=== PATIENT | female | born 1945 | race Caucasian/White ===

== ENCOUNTER 2025-01-14 20:04 | Observation (INO) | payer MEDICARE, SELFPAY ==
[2025-01-14] VITALS (58 sets, daily range): BP systolic 93–216; BP diastolic 37–184; BMI 24.9; BMI 23.6
--- NOTE | 2025-01-14 13:26 | ED.MUSCINJ ---
HPI-Injury
<Priyank Whiteside PA-C - Last Filed: 01/14/25 19:16>
General
Chief Complaint: Musculo-Skeletal Complaint
Source: patient
Exam Limitations: none
Time Seen by Provider: 01/14/25 13:19
History of Present Illness-Injury
Initial Injury comments:
79-year-old female on Eliquis presents complaining of right hip pain and deformity. She is on her third hip replacement and has dislocated 5 times. Initially the surgery was done in [place]. She moved here couple months ago. She is due to see
[facility] orthopedics in 2 days. She was reaching for something and felt her hip pop out of place today. No other complaints
Phy Exam
<Priyank Whiteside PA-C - Last Filed: 01/14/25 19:16>
Physical Exam
Physical Exam:
General: Well-appearing female no acute respiratory distress
HEENT normal cephalic atraumatic
Musculoskeletal exam: Right lower extremity is shortened and internally rotated
Vascular: 2+ DP pulse bilateral feet
Neurologic: Good sensation bilateral legs
Injury Course
<Priyank Whiteside PA-C - Last Filed: 01/14/25 19:16>
Orders/Labs/Results
Orders:
Orders
01/14/25 13:26
HYDROmorphone [Dilaudid] 0.5 mg IV NOW STA
CR Hip - RT without Pel 1 Vw Urgent
Comment:
Reason For Exam: deformity
01/14/25 14:52
Propofol [Diprivan] 20 ml .ROUTE .STK-MED
01/14/25 15:33
CR Hip - RT without Pel 1 Vw Urgent
Comment: PORTABLE
Reason For Exam: Post reduction
01/14/25 16:12
CR Hip - RT without Pel 1 Vw Urgent
Comment:
Reason For Exam: please do lateral, post reduction
01/14/25 17:43
CT Pelvis W/o Iv Contrast Urgent
Comment:
Reason For Exam: right hip pain
01/14/25 17:46
HYDROmorphone [Dilaudid] 0.5 mg IV NOW STA
<Walter Mcgee DO - Last Filed: 01/14/25 19:03>
Orders/Labs/Results
Orders:
Orders
01/14/25 13:26
HYDROmorphone [Dilaudid] 0.5 mg IV NOW STA
CR Hip - RT without Pel 1 Vw Urgent
Comment:
Reason For Exam: deformity
01/14/25 14:52
Propofol [Diprivan] 20 ml .ROUTE .STK-MED
01/14/25 15:33
CR Hip - RT without Pel 1 Vw Urgent
Comment: PORTABLE
Reason For Exam: Post reduction
01/14/25 16:12
CR Hip - RT without Pel 1 Vw Urgent
Comment:
Reason For Exam: please do lateral, post reduction
01/14/25 17:43
CT Pelvis W/o Iv Contrast Urgent
Comment:
Reason For Exam: right hip pain
01/14/25 17:46
HYDROmorphone [Dilaudid] 0.5 mg IV NOW STA
Procedures
<Priyank Whiteside PA-C - Last Filed: 01/14/25 19:16>
Moderate Sedation
ASA Risk Score: Class II
Chart and allergies reviewed: Yes
Consent for anesthesia obtained: Yes
Time out completed (validating right patient & procedure): Yes
Moderate Sedation Start Time(when first medication is given): 15:28
History of difficult intubation: No
Airway free of obstruction: Yes
Patient has a gag reflex: Yes
Patient is able to open mouth: Yes
Patient has no dentures: Yes
Patient has no loose teeth: Yes
Medication administered by Provider during Moderate Sedation: IV Propofol (mg)
Total dose administered: 100
Time drug administered: 15:28
Moderate Sedation Procedure End Time: 15:39
<TRISH Perez Last Filed: 01/14/25 19:16>
MDM/Problems Addressed
Differential Diagnosis Includes:
Right hip pain and deformity. Suspect recurrent dislocation. X-rays pending.
<TRISH Perez Last Filed: 01/14/25 19:16>
*Pulse Oximetry
SaO2: 93
Oxygen Mode of Delivery: Room air
Patient hypoxic: no
*Critical Care Note
Total Time (30-74mins, 75-104mins- exclusive of procedures): Not Applicable
<TRISH Perez Last Filed: 01/14/25 19:16>
Update Note
Update Note:
X-rays confirmed right hip prosthesis to be dislocated. Written consent obtained for moderate sedation and hip reduction. Emergency room attending perform sedation. 100 mg of propofol were used. It was reduced with hip in flexion and
longitudinal traction with internal rotation. Postreduction films demonstrated adequate reduction however there may have been some subluxation on the initial films. This prompted a CT of the pelvis to confirm reduction. CT of the pelvis did
confirm adequate reduction at the hip. There is a hematoma noted in the loop. Patient attempted to stand here she is having too much discomfort. At this point she would be an unsafe discharge. Will admit to hospital for further evaluation
ED Attending Note
<TRISH Perez Last Filed: 01/14/25 19:16>
-
Portions of this chart may have been created with voice recognition software.� Occasional wrong word or��sound alike� substitutions may have occurred due to the inherent limitations of voice recognition software.
<Walter Mcgee, DO - Last Filed: 01/14/25 19:03>
ED Attending Note
Patient seen and examined by attending physician: Yes
ED Attending Note:
I reviewed and agree with history treatment plan by Marco Antonio Whiteside. My exam revealed 79-year-old female with internally rotated right leg. Patient tolerated reduction, but still has discomfort when walking. CT shows no signs of fracture, femoral
head appears well-seated in the acetabulum. Will admit due to patient's difficulty with mobility.
Discharge Plan
Departure
Patient Disposition: Admit
Date of Disposition: 01/14/25
Time of Disposition: 19:15
Presentation/result/management discussed w/ accepting MD/DO: Hospitalist
Discharge Problem:
Dislocation of hip prosthesis
Referrals:
Cristina Vargas DO [Family Provider, Internal Medicine]
Interventions
Interventions:
*Risk Screen - Suicide Last Done: 01/14/25 13:16
*General Assessment Last Done: 01/14/25 13:16
*Neglect/Abuse Screening Last Done: 01/14/25 13:16
*ED- Fall Risk Assessment Last Done: 01/14/25 13:16
*ED COVID-19 Vaccine History Last Done: 01/14/25 13:16
*ED Influenza Vaccine History Last Done: 01/14/25 13:16
ED-Musculoskeletal Assessment Last Done: 01/14/25 13:16
Discharge Date and Time
Print Language: KITTITIAN
[2025-01-14] MEDS: DILAUDID 0.5 MG IV ×3 (13:36→22:03)
--- NOTE | 2025-01-14 19:55 | HPS.HSE ---
Addendum entered and electronically signed by Sunday June MD 01/14/25 22:41:
Patient with prior history of prior DVT on Eliquis. Hold Eliquis for now given hematoma until PT can be assessed and patient is mobile.
Original Note:
Family Physician
-
Family Physician: Cristina Vargas
Chief Complaint
-
right hip pain
History of Present Illness
79-year-old female past medical history of right hip replacement x 3 complicated by 5 hip dislocations, hypoglycemia, hiatal hernia, back fusion, presenting with right hip pain and deformity. The initial surgery was done in [place]. She moved
here couple months ago. She felt her hip pop out of place today. No other complaints.
She is supposed to see [facility] in 2 days.
Patient gets symptomatic hypoglycemic daily with blood sugars of 50. She wears a monitor. She usually eats and can receive glucagon with improvement.
She does not smoke or drink alcohol.
Medical History
Past Medical History
Past Medical History: Reports Other ( right hip replacement x 3 complicated by 5 hip dislocations, hypoglycemia, hiatal hernia, back fusion,)
Past Surgical History: Reports Other (Appendectomy, back fusion, gallbladder resection, hernia repair)
Social History
Tobacco: Non-smoker
Alcohol: None
Drug: None
Family History
Family History: Not pertinent
Allergies / Home Medications
Allergies reflects when Allergies were last updated in [email or web address].
Home Medications with original date entered in [email or web address]
Allergy/Medication List:
Allergies
Allergy/AdvReac Type Severity Reaction Status Date / Time
adhesive tape Allergy Unknown Verified 01/14/25 13:26
Review of Systems
-
History Source: Patient
A 12 point ROS was completed and negative except as noted: Yes
Constitutional: Reports No Symptoms
EENT: Reports No Symptoms
Respiratory: Reports No Symptoms
Cardiac: Reports No Symptoms
Abdomen/GI: Reports No Symptoms
: Reports No Symptoms
Musculoskeletal: Reports No Symptoms
Skin: Reports No Symptoms
Neurological: Reports No Symptoms
Endocrine: Reports No Symptoms
Hematologic/Lymphatic: Reports No Symptoms
Psych: Reports No Symptoms
Physical Exam
Vital Signs
Vital Signs
Temp Pulse Resp BP Pulse Ox
98.7 F 58 12 135/53 98
01/14/25 16:09 01/14/25 16:15 01/14/25 16:15 01/14/25 18:35 01/14/25 18:35
Physical Exam
General: Well Developed, Well Nourished and No Apparent Distress
HEENT: NormoCephalic, Moist mucous membranes and Atraumatic
Respiratory: Clear
Cardiac: S1/S2 and Regular Rhythm; No Murmur or Rub
GI: Soft, Non Tender, Non Distended and Normal Bowel Sounds; No Organomegaly
Rectal: Deferred by Provider
Musculoskeletal: No Clubbing, No Cyanosis and No Edema
Skin: No Rash
Neuro: Nonfocal/grossly intact
Data Reviewed
-
Lab Data: Labs Reviewed by me
Old Records: Reviewed
Impression/Plan
-
IMPRESSION:
PLAN:
# Right hip dislocation with hematoma
# History of right hip replacement x 3 5 prior hip dislocation
-Right hip x-ray shows right hip dislocation
- Reduced in the emergency room
- Repeat hip x-ray shows femoral component of the right hip prosthesis appears better seated relative to the acetabular component, hematoma adjacent to right hip prosthesis
- Pelvic CT shows femoral component of the right hip appears better seated relative to the acetabular component, hematoma present adjacent to the right hip prosthesis perhaps with a hematoma contributing complete reduction of the right hip
dislocation previously
- ER spoke with [facility] orthopedics who states that at the current time patient can stay as dislocation has been completely reduced here but if further interventions are necessary she would need to be transferred to tertiary center
- Tylenol, Toradol, Dilaudid
- PT/OT
History of daily symptomatic hypoglycemia thought to be related to hiatal hernia
- Dextrose Glucagon as needed
Hiatal hernia
History of back fusion
Full code
DVT prophylaxis�SCDs
regular diet
[2025-01-14] MEDS: TORADOL 15 MG IV (20:15)
[2025-01-14 21:42] LABS: Glucose - Point of Care 122 mg/dl (70-99)
[2025-01-14 23:21] LABS: Hematocrit 26.3 % (37.0-47.0); Hemoglobin 8.7 g/dL (12.0-16.0); Mean Corp Hgb Conc. 33.1 g/dL (33.0-37.0); Mean Corpuscular Volume 85.4 fL (81.0-99.0); Nucleated Red Blood Cells % 0 %; Platelet Count 252 10^3/uL (130-400); Red Cell Dist. Width 15.9 % (11.5-14.5)
[2025-01-14 23:33] LABS: Blood Urea Nitrogen 23 mg/dl (7-17); Calcium 8.7 mg/dl (8.4-10.2); Carbon Dioxide 25 mmol/L (22-30); Chloride 109 mmol/L (98-107); Estimated Creatinine Clearance 39 ml/min; Glucose 120 mg/dl (70-99); Potassium 4.3 mmol/L (3.5-5.1); Sodium 135 mmol/L (135-145); eGFR > 60.00
[2025-01-15] MEDS: DILAUDID 0.5 MG IV ×2 (02:43→09:41)
[2025-01-15 06:22] LABS: Hematocrit 25.7 % (37.0-47.0); Hemoglobin 8.3 g/dL (12.0-16.0); Mean Corp Hgb Conc. 32.3 g/dL (33.0-37.0); Mean Corpuscular Volume 87.1 fL (81.0-99.0); Nucleated Red Blood Cells % 0 %; Platelet Count 243 10^3/uL (130-400); Red Cell Dist. Width 16.1 % (11.5-14.5)
[2025-01-15 06:41] LABS: ALT (SGPT) 21 U/L (0-35); AST (SGOT) 26 U/L (14-36); Albumin 3.0 g/dl (3.5-5.0); Alkaline Phosphatase 49 U/L (38-126); Blood Urea Nitrogen 24 mg/dl (7-17); Calcium 8.8 mg/dl (8.4-10.2); Carbon Dioxide 26 mmol/L (22-30); Chloride 110 mmol/L (98-107); Estimated Creatinine Clearance 35 ml/min; Glucose 100 mg/dl (70-99); Potassium 4.6 mmol/L (3.5-5.1); Sodium 138 mmol/L (135-145); Total Protein 5.0 g/dl (6.3-8.2); eGFR 56.95
[2025-01-15 07:00] VITALS: BP 105/41
[2025-01-15 08:31] LABS: Glucose - Point of Care 102 mg/dl (70-99)
[2025-01-15 10:20] LABS: Iron 78 ug/dl (37-170)
[2025-01-15 10:29] LABS: Total Iron Binding Capacity 277 ug/dl (265-497)
--- NOTE | 2025-01-15 11:18 | PTCARENOTE ---
Patient reports she was c.diff positive three weeks ago and completed a course of oral vanco. Patient will remain on enhanced isolation precautions at this time as per policy.
--- NOTE | 2025-01-15 11:38 | CM ---
Reviewed the chart notes and spoke with the patient and her daughter at the bedside. The patient is admitted under observational status. The PHAM letter was provided and explained. The patient had no questions with regards to the letter.
The patient recently moved from [place] to this area to reside with her daughter in a two story home with two steps to enter. Per daughter, the patient is taken to another family member's home for showering since there is no first floor shower
available in the daughters home. The patient has had VN and been to a SNF in [place]. The patient confirmed her pharmacy of choice is [facility] [address] [place]. Pending PT/OT evaluations. CM continues to be available to patient/family
and is monitoring medical plan for needs at discharge.
Plan: Discharge plans will depend on the patient's progress.
--- NOTE | 2025-01-15 11:42 | W.PN.HOSP.TC ---
Addendum entered and electronically signed by Kashif Stephesnon MD 01/15/25 15:04:
Per orthopedics, use knee immobilizer for 6 weeks. Can come out for hygiene.
Original Note:
Today's Communication/Plan
-
monitor vitals
see plan
ortho eval
pain control
PT/OT
hold eliquis
Assessment / Plan
Assessment / Plan
General: Well Developed, Well Nourished and No Apparent Distress
HEENT: NormoCephalic, Moist mucous membranes and Atraumatic
Respiratory: Clear
Cardiac: S1/S2 and Regular Rhythm; No Murmur or Rub
GI: Soft, Non Tender, Non Distended and Normal Bowel Sounds
Musculoskeletal: No Edema
Skin: No Rash
Neuro: Nonfocal/grossly intact
Right hip dislocation with hematoma
# History of right hip replacement x 3 5 prior hip dislocation
-Right hip x-ray shows right hip dislocation
- Reduced in the emergency room
- Repeat hip x-ray shows femoral component of the right hip prosthesis appears better seated relative to the acetabular component, hematoma adjacent to right hip prosthesis
- Pelvic CT shows femoral component of the right hip appears better seated relative to the acetabular component, hematoma present adjacent to the right hip prosthesis perhaps with a hematoma contributing complete reduction of the right hip
dislocation previously
hold eliquis for now
- ER spoke with [facility] orthopedics who states that at the current time patient can stay as dislocation has been completely reduced here but if further interventions are necessary she would need to be transferred to tertiary center
orthopedics consulted for further assistance; patient currently has knee immobilizer put in by ED; confirmed with ED and reported that they usually leave it on until further evaluated by ortho
- Tylenol,Dilaudid. Add tramadol
- PT/OT
History of daily symptomatic hypoglycemia thought to be related to hiatal hernia
- Dextrose Glucagon as needed
hx of IBS
Hiatal hernia
History of back fusion
Full code
DVT prophylaxis�SCDs
Anticipated Discharge: Within 24 hours
Subjective/Interval History
-
Date of Service: January 15, 2025
has some pain
Objective Data
-
Labs:
Laboratory Results
01/15/25
05:50
WBC 5.4
Hgb 8.3 L
Hct 25.7 L
Plt Count 243
Sodium 138
Potassium 4.6
Chloride 110 H
Carbon Dioxide 26
BUN 24 H
Creatinine 1.0
Glucose 100 H
Calcium 8.8
Total Bilirubin 0.9
AST 26
ALT 21
Alkaline Phosphatase 49
Vital Signs:
Vital Signs
Temp Pulse Resp BP Pulse Ox
99.6 F 60 18 105/41 95
01/15/25 07:00 01/15/25 07:00 01/15/25 07:00 01/15/25 07:00 01/15/25 07:00
I&O
01/14/25 01/15/25 01/16/25
06:59 06:59 06:59
Intake Total 120 / 120
Balance 120 / 120
--- NOTE | 2025-01-15 11:44 | W.PN.UPDATE ---
Update Note
Progress Note Update
H & P to follow
79 y/o female with index R AL July 2024 with 2 revision surgeries and overall reported 5 dislocation events, 2 since most recent surgery.
Currently in a knee immobilizer; she reports pain in the right hip but has not yet ambulated. Discussed internally within surgical group with total joint surgeons recommending care at a tertiary facility; had planned outpatient f/u this
with [facility].
-continue knee immobilizer RLE
-total hip precautions
-PT/OT consult- if continued instability event while admitted recommend transfer, otherwise continue outpatient f/u
[2025-01-15 12:03] LABS: Ferritin 17.3 ng/ml (11.1-264.0)
[2025-01-15 12:13] LABS: Glucose - Point of Care 101 mg/dl (70-99)
[2025-01-15 12:34] LABS: Folate 9.5 ng/ml (2.76-20); Vitamin B12 788 pg/ml (239-931)
[2025-01-15 13:25] VITALS: BP 108/44; PULSE 66; O2SAT 95
[2025-01-15] MEDS: NON-FORMULARY ITEM 50 MG PO ×2 (13:31→19:05)
[2025-01-15] MEDS: PROTONIX 40 MG PO (13:31)
[2025-01-15 13:39] VITALS: BP 108/44; PULSE 68; O2SAT 96
[2025-01-15] MEDS: FERRLECIT 110 MG IV (14:48)
[2025-01-15 15:00] VITALS: BP 120/48
[2025-01-15 17:24] LABS: Glucose - Point of Care 135 mg/dl (70-99)
--- NOTE | 2025-01-15 20:30 | CON.ORTHO ---
Consultation
-
Date/Time Consultation Requested: 01/15/2025 1140
Date/Time Consultation Performed: 01/15/2025 0815
Requesting Provider: Dr. Kashif Stephenson
Performing Provider: TRISH Sprague, Dr. Emil Maria
Reason for Consultation: R AL instability
Consultation - Orthopedics
History
79-year-old female with a history of right total hip arthroplasty done in [place] with index surgery in July 2024 with chronic instability and refractory to 2 revision surgeries for the same surgery in [place]. She reports since her most
recent surgery in November she has had 2 dislocation events when she was reaching to get dressed. She was seen through the emergency department and underwent reduction attempts which were eventually successful. She reports continued pain about the
right hip. She has not yet seen [facility] orthopedics but is scheduled to see them this week
Allergies / Home Medications
Allergy/AdvReac Type Severity Reaction Status Date / Time
adhesive tape Allergy Unknown Verified 01/14/25 13:26
�Medication �Instructions �Recorded
Eliquis 5 mg PO BID Blood Clot 01/14/25
Prevention/Tx
tenapanor 50 mg tablet (Ibsrela) 50 mg PO BID irritable bowel 01/15/25
Vital Signs / Lab Results
Past Medical History
Past Medical History: Reports Other ( right hip replacement x 3 complicated by 5 hip dislocations, hypoglycemia, hiatal hernia, back fusion,)
Past Surgical History: Reports Other (Appendectomy, back fusion, gallbladder resection, hernia repair)
Social History
Tobacco: Non-smoker
Alcohol: None
Drug: None
Family History
Family History: Not pertinent
Temp Pulse Resp BP Pulse Ox
98.7 F 63 18 120/48 99
01/15/25 15:00 01/15/25 15:00 01/15/25 15:00 01/15/25 15:00 01/15/25 15:00
01/15/25 05:50
01/15/25 05:50
Physical Exam: Examination of the right lower extremity level hip skin is intact. Soft tissue swelling surrounding the hip. No erythema. Neuro vas intact L3-S1. Knee immobilizer in place. Equal limb length
Imaging: Initial imaging shows total hip arthroplasty dislocation without acute fracture. Subsequent imaging to include x-rays and CT show reduced total hip arthroplasty without evidence of associated fracture or hardware complication
Assessment / Plan
79-year-old female status post right total hip arthroplasty insertion [place] with 3 revision surgeries and 5 overall dislocations with 2 since her most recent surgery with successful reduction. Patient is currently in a knee immobilizer. Given
patient's complexity regarding her chronic right hip instability she was recommended for further orthopedic follow-up at a tertiary care center.
- Recommend continue knee immobilizer to reduce risk of repeat dislocation event
- PT/OT/discharge planning
- Patient will further consider follow-up as already scheduled with [facility] versus other tertiary center such as [facility].
Orthopedic surgery will follow peripherally
[2025-01-15 21:07] LABS: Glucose - Point of Care 118 mg/dl (70-99)
[2025-01-15 23:42] VITALS: BP 105/54
[2025-01-16 07:30] VITALS: BP 113/53
[2025-01-16 07:52] LABS: Hematocrit 25.2 % (37.0-47.0); Hemoglobin 8.1 g/dL (12.0-16.0); Mean Corp Hgb Conc. 32.1 g/dL (33.0-37.0); Mean Corpuscular Volume 87.5 fL (81.0-99.0); Nucleated Red Blood Cells % 0 %; Platelet Count 211 10^3/uL (130-400); Red Cell Dist. Width 16.3 % (11.5-14.5)
[2025-01-16 08:18] LABS: Glucose - Point of Care 91 mg/dl (70-99)
[2025-01-16] MEDS: NON-FORMULARY ITEM 50 MG PO ×2 (08:54→20:42)
[2025-01-16] MEDS: PROTONIX 40 MG PO (08:54)
[2025-01-16 09:00] LABS: Blood Urea Nitrogen 24 mg/dl (7-17); Calcium 9.0 mg/dl (8.4-10.2); Carbon Dioxide 25 mmol/L (22-30); Chloride 110 mmol/L (98-107); Estimated Creatinine Clearance 35 ml/min; Glucose 92 mg/dl (70-99); Potassium 4.4 mmol/L (3.5-5.1); Sodium 139 mmol/L (135-145); eGFR 56.95
--- NOTE | 2025-01-16 09:40 | W.PN.HOSP.TC ---
Today's Communication/Plan
-
monitor vitals
see plan
monitor hgb further
cw IV iron
if hgb doesnt improve then will need repeat imaging on that hip
check heme test stool
Assessment / Plan
Assessment / Plan
General: Well Developed, Well Nourished and No Apparent Distress
HEENT: NormoCephalic, Moist mucous membranes and Atraumatic
Respiratory: Clear
Cardiac: S1/S2 and Regular Rhythm; No Murmur or Rub
GI: Soft, Non Tender, Non Distended and Normal Bowel Sounds
Musculoskeletal: No Edema
Skin: No Rash
Neuro: Nonfocal/grossly intact
Right hip dislocation with hematoma
# History of right hip replacement x 3 5 prior hip dislocation
suspect acute blood loss anemia
-Right hip x-ray shows right hip dislocation
- Reduced in the emergency room
- Repeat hip x-ray shows femoral component of the right hip prosthesis appears better seated relative to the acetabular component, hematoma adjacent to right hip prosthesis
- Pelvic CT shows femoral component of the right hip appears better seated relative to the acetabular component, hematoma present adjacent to the right hip prosthesis perhaps with a hematoma contributing complete reduction of the right hip
dislocation previously
hold eliquis for now; patient is high risk for clot so would need to start soon; current hgb 8.1. per outpatient chart that patient has hgb was 11.8 12/31. iron deficiency on IV iron. check heme test stool. denies any dark stool
- ER spoke with [facility] orthopedics who states that at the current time patient can stay as dislocation has been completely reduced here but if further interventions are necessary she would need to be transferred to tertiary center
orthopedics consulted for further assistance; patient currently has knee immobilizer put in by ED; confirmed with ED and reported that they usually leave it on until further evaluated by ortho
- Tylenol,Dilaudid. Added tramadol
- PT/OT rec home health
History of daily symptomatic hypoglycemia thought to be related to hiatal hernia
- Dextrose Glucagon as needed
hx of IBS
Hiatal hernia
hx of cdiff
History of back fusion
Full code
DVT prophylaxis�SCDs
Anticipated Discharge: Within 24 hours
Subjective/Interval History
-
Date of Service: January 16, 2025
denies pain
Objective Data
-
Labs:
Laboratory Results
01/16/25
06:54
WBC 5.5
Hgb 8.1 L
Hct 25.2 L
Plt Count 211
Sodium 139
Potassium 4.4
Chloride 110 H
Carbon Dioxide 25
BUN 24 H
Creatinine 1.0
Glucose 92
Calcium 9.0
Vital Signs:
Vital Signs
Temp Pulse Resp BP Pulse Ox
98.6 F 61 16 113/53 95
01/16/25 07:30 01/16/25 07:30 01/16/25 07:30 01/16/25 07:30 01/16/25 07:30
I&O
01/15/25 01/16/25 01/17/25
06:59 06:59 06:59
Intake Total 120 / 120 690 / 690
Balance 120 / 120 690 / 690
[2025-01-16 11:58] VITALS: BP 100/52; PULSE 62
[2025-01-16] MEDS: FERRLECIT 110 MG IV (13:06)
[2025-01-16 13:59] LABS: Glucose - Point of Care 151 mg/dl (70-99)
[2025-01-16 15:25] VITALS: BP 146/57
--- NOTE | 2025-01-16 15:50 | CM ---
Reviewed the chart notes and spoke with the patient and daughter at the bedside. PT/OT recommending home health at discharge. CM continues to be available to patient/family and is monitoring medical plan for needs at discharge.
Plan: Discharge plans will depend on the patient's progress.
[2025-01-16 16:53] LABS: Glucose - Point of Care 103 mg/dl (70-99)
[2025-01-16] MEDS: MIRALAX 17 GRAMS PO (17:55)
[2025-01-16 19:47] LABS: Glucose - Point of Care 120 mg/dl (70-99)
[2025-01-16] MEDS: TYLENOL 650 MG PO (20:54)
[2025-01-16 21:42] LABS: Glucose - Point of Care 103 mg/dl (70-99)
[2025-01-16 23:10] VITALS: BP 118/45
[2025-01-17 02:51] LABS: Glucose - Point of Care 100 mg/dl (70-99)
[2025-01-17] MEDS: TYLENOL 650 MG PO ×2 (05:32→20:15)
[2025-01-17 05:55] LABS: Transferrin 199 mg/dL (200-360)
[2025-01-17 07:25] VITALS: BP 141/72
[2025-01-17 07:26] LABS: Glucose - Point of Care 98 mg/dl (70-99)
[2025-01-17 07:36] LABS: Hematocrit 27.6 % (37.0-47.0); Hemoglobin 8.7 g/dL (12.0-16.0); Mean Corp Hgb Conc. 31.5 g/dL (33.0-37.0); Mean Corpuscular Volume 91.4 fL (81.0-99.0); Nucleated Red Blood Cells % 0 %; Platelet Count 228 10^3/uL (130-400); Red Cell Dist. Width 16.0 % (11.5-14.5)
[2025-01-17 08:08] LABS: Blood Urea Nitrogen 26 mg/dl (7-17); Calcium 9.1 mg/dl (8.4-10.2); Carbon Dioxide 26 mmol/L (22-30); Chloride 109 mmol/L (98-107); Estimated Creatinine Clearance 35 ml/min; Glucose 88 mg/dl (70-99); Potassium 5.2 mmol/L (3.5-5.1); Sodium 138 mmol/L (135-145); eGFR 56.95
[2025-01-17] MEDS: NON-FORMULARY ITEM 50 MG PO ×2 (09:59→20:16)
[2025-01-17] MEDS: PROTONIX 40 MG PO (09:59)
[2025-01-17] MEDS: MIRALAX 17 GRAMS PO (09:59)
[2025-01-17] MEDS: ELIQUIS 5 MG PO ×2 (10:08→20:15)
[2025-01-17 10:53] VITALS: BP 106/54; BP 68/44
--- NOTE | 2025-01-17 12:48 | W.PN.HOSP.TC ---
Today's Communication/Plan
-
restrt ELiquis and follow clinically
Assessment / Plan
Assessment / Plan
79yo F with PMHx of DVT on EliquisIBS, Hx of R AL in [place] in July 2024 with chronic insability and recurrent dyslocations came to with one more dislocation and fall. Ortho advised follow up in tertiary center and R knee immobilizer. Also
found anemia with R hip hematoma
A/P
#Acute blood loss anemia with R hip hematoma 2/2 fall
most likely /[address]: large lobulated hematoma extending posteriorly and laterally from the right hip prosthesis, and also extending into the right gluteal musculature, mainly involving the right gluteus medius muscle. At the level of the hip and proximal
femur, this hematoma measures approximately 6.6 cm transverse by 4.1 cm AP by 6.8 cm craniocaudal. Component that extends into the right gluteus medius muscle measures approximately 5 cm AP by 6 cm transverse by 7 cm craniocaudal'
Eliquis held initially, restarted on 01/17/25 with stable Hgb
IF further drop or brsing - CTA
#R prosthetic hip instability
Ortho followed
#Constipation
laxatives
#Hx of lumbar spine Sx
#Hx of DVT
cont home meds
DVT ppx Eliquis
Full code
I have spent at least 36min reviewing chart, test results and providing direct patient care
Anticipated Discharge: Within 24 hours
Subjective/Interval History
-
Date of Service: January 17, 2025
Objective Data
-
Labs:
Laboratory Results
01/17/25
06:36
WBC 4.7 L
Hgb 8.7 L
Hct 27.6 L
Plt Count 228
Sodium 138
Potassium 5.2 H
Chloride 109 H
Carbon Dioxide 26
BUN 26 H
Creatinine 1.0
Glucose 88
Calcium 9.1
Vital Signs:
Vital Signs
Temp Pulse Resp BP Pulse Ox
98.2 F 55 16 141/72 97
01/17/25 07:25 01/17/25 07:25 01/17/25 07:25 01/17/25 07:25 01/17/25 07:25
I&O
01/16/25 01/17/25 01/18/25
06:59 06:59 06:59
Intake Total 690 / 690 1170 / 1170
Balance 690 / 690 1170 / 1170
Review of Systems
-
History Source: Patient
All other systems: Reviewed and negative
Physical Exam
-
General: No Apparent Distress
HEENT: Normocephalic
Respiratory: Clear to Auscultation
Cardiac: Regular Rhythm
Musculoskeletal: No Clubbing and Other (no visible bruising or swelling R hip)
Skin: Warm
Neuro: Awake, Alert, Oriented and AO x 3
Psych: Calm
[2025-01-17] MEDS: FERRLECIT 110 MG IV (13:17)
--- NOTE | 2025-01-17 13:56 | CM ---
Addendum entered by Edita Smith RN 01/17/25 15:31:
Informed daughter CD of CT pelvis and hip x-rays in patient's chart to be included with discharge paperwork.
Original Note:
Reviewed the chart notes and spoke with the patient at the bedside. PT recommending home health. Reviewed VN services. Patient selected VN, referral placed in Care Port. CM continues to be available to patient/family and is monitoring medical
plan for needs at discharge.
Plan: Discharge to home with VN services.
[2025-01-17 14:44] VITALS: BP 121/60; PULSE 70; O2SAT 96
[2025-01-17 15:20] VITALS: BP 102/46
[2025-01-17 16:13] LABS: Glucose - Point of Care 94 mg/dl (70-99)
[2025-01-17] MEDS: ZOFRAN 4 MG IV (21:36)
[2025-01-17 22:03] LABS: Glucose - Point of Care 221 mg/dl (70-99)
[2025-01-17 22:07] VITALS: BP 115/45
[2025-01-18 07:34] VITALS: BP 133/57
[2025-01-18 07:51] LABS: Glucose - Point of Care 90 mg/dl (70-99)
[2025-01-18 07:55] LABS: Hematocrit 28.6 % (37.0-47.0); Hemoglobin 9.2 g/dL (12.0-16.0)
[2025-01-18] MEDS: MIRALAX PO (08:16)
[2025-01-18] MEDS: TYLENOL 650 MG PO (08:16)
[2025-01-18] MEDS: NON-FORMULARY ITEM 50 MG PO (08:16)
[2025-01-18] MEDS: PROTONIX 40 MG PO (08:16)
[2025-01-18] MEDS: ELIQUIS 5 MG PO (08:16)
--- NOTE | 2025-01-18 10:09 | W.PN.HOSP.TC ---
Today's Communication/Plan
-
DC
Assessment / Plan
Assessment / Plan
79yo F with PMHx of DVT on Eliquis, IBS, Hx of R AL in [place] in July 2024 with chronic instability and recurrent dislocations came to with one more dislocation and fall. Ortho advised follow up in tertiary center and R knee immobilizer.
Also found anemia with R hip hematoma. Eliquis initially held, then restarted. No worsening swelling or further drop in hgb noted. Family helped to schedule appointment in [facility] ortho for further mgmt of instability of the R hip. PT/OT assessed
patient and agreeable with d/c home. Medically stable to be d/c home and patient without worsening or new complains at the day of d/c
A/P
#Acute blood loss anemia with R hip hematoma 2/2 fall
most likely /[address]: large lobulated hematoma extending posteriorly and laterally from the right hip prosthesis, and also extending into the right gluteal musculature, mainly involving the right gluteus medius muscle. At the level of the hip and proximal
femur, this hematoma measures approximately 6.6 cm transverse by 4.1 cm AP by 6.8 cm craniocaudal. Component that extends into the right gluteus medius muscle measures approximately 5 cm AP by 6 cm transverse by 7 cm craniocaudal'
Eliquis held initially, restarted on 01/17/25 with stable Hgb
IF further drop or brsing - CTA
#R prosthetic hip instability
Ortho followed
#Constipation
laxatives
#Hx of lumbar spine Sx
#Hx of DVT
cont home meds
DVT ppx Eliquis
Full code
I have spent at least 36min reviewing chart, test results and providing direct patient care
Anticipated Discharge: Today
Subjective/Interval History
-
Date of Service: January 18, 2025
Objective Data
-
Labs:
Laboratory Results
01/18/25
07:40
Hgb 9.2 L
Hct 28.6 L
Vital Signs:
Vital Signs
Temp Pulse Resp BP Pulse Ox
97.5 F 52 18 133/57 99
01/18/25 07:34 01/18/25 07:34 01/18/25 07:34 01/18/25 07:34 01/18/25 07:34
I&O
01/17/25 01/18/25 01/19/25
06:59 06:59 06:59
Intake Total 1170 / 1170 840 / 840
Balance 1170 / 1170 840 / 840
Review of Systems
-
History Source: Patient
All other systems: Reviewed and negative
Physical Exam
-
General: No Apparent Distress
HEENT: Normocephalic
Respiratory: Clear to Auscultation
GI: Soft, Nontender and Nondistended
Skin: Warm
Psych: Calm
--- NOTE | 2025-01-18 12:44 | W.DCSUMMARY ---
Discharge Summary
Discharge Data
Date of Admission: 01/14/25
Date of Discharge: 01/18/25
-
Pending Results: No
Hospital Course
79yo F with PMHx of DVT on Eliquis, IBS, Hx of R AL in [place] in July 2024 with chronic instability and recurrent dislocations came to with one more dislocation and fall. Ortho advised follow up in tertiary center and R knee immobilizer.
Also found anemia with R hip hematoma. Eliquis initially held, then restarted. No worsening swelling or further drop in hgb noted. Family helped to schedule appointment in [facility] ortho for further mgmt of instability of the R hip. PT/OT assessed
patient and agreeable with d/c home. Medically stable to be d/c home and patient without worsening or new complains at the day of d/c
I have spent at least 36min reviewing chart, test results and providing direct patient care
Patient was managed for:
#Acute blood loss anemia with R hip hematoma 2/2 fall
#R prosthetic hip instability
#Constipation
#Hx of lumbar spine Sx
#Hx of DVT
Discharge Plan
-
Patient Disposition: Home (Routine Discharge)
Discharge Diagnosis/Procedures: Right hip dislocation with hematoma
Iron deficiency anemia
Condition: Fair
Diet: As tolerated
Activity: As tolerated and With Walker
Driving Restrictions: Not until seen by your Dr
Blood Work: CBC next week with primary care provider
Activity Restrictions/Additional Instructions:
Please follow-up with orthopedics at [facility]
Referrals:
Priyank Hoskins MD [Non-Admitting Privileges, Orthopedics]
Cristina Vargas DO [Family Provider, Internal Medicine] - in less than 1 week
Prescriptions:
Continued
Eliquis
5 mg PO BID
Ibsrela 50 mg Tablet
50 mg PO BID
Discharge Orders:
Discharge Patient (As Directed); Ordered 01/18/25
Ordered By: Alden Ismailov
Discharge Date and Time
Print Language: POLISH
[2025-01-18 12:48] VITALS: BP 102/50; BP 112/57
[2025-01-18 12:50] VITALS: BP 102/50; BP 112/57
[2025-01-18 12:51] LABS: Glucose - Point of Care 100 mg/dl (70-99)
[2025-01-18] MEDS: FLUZONE HIGH-DOSE 2025-26 0.5 ML IM (13:36)
[2025-01-18] MEDS: FERRLECIT 110 MG IV (13:38)
[2025-01-18 15:20] VITALS: BP 98/43
== END 2025-01-18 16:26 | disposition home health service (06) ==
LOC: 2 NORTH 20:04
PROVIDERS: Internal Medicine; ADMITTING PHYSICIAN Hospitalist; ATTENDING PHYSICIAN Internal Medicine; CONSULT PHYSICIAN Orthopaedic Surgery; EMERGENCY PHYSICIAN Emergency Medicine; FAMILY PHYSICIAN Internal Medicine
DX: T84.020A Dislocation of internal right hip prosthesis, initial encounter (principal); M25.551 Pain in right hip; S70.01XA Contusion of right hip, initial encounter; D62 Acute posthemorrhagic anemia; D50.9 Iron deficiency anemia, unspecified; Y83.1 Surgical operation with implant of artificial internal device as the cause of abnormal reaction of the patient, or of later complication, without mention of misadventure at the time of the procedure; Y92.009 Unspecified place in unspecified non-institutional (private) residence as the place of occurrence of the external cause; W19.XXXA Unspecified fall, initial encounter; Y93.89 Activity, other specified; Y79.2 Prosthetic and other implants, materials and accessory orthopedic devices associated with adverse incidents; K59.00 Constipation, unspecified; K44.9 Diaphragmatic hernia without obstruction or gangrene; E16.2 Hypoglycemia, unspecified; M25.351 Other instability, right hip; Z98.1 Arthrodesis status; Z86.19 Personal history of other infectious and parasitic diseases; Z91.048 Other nonmedicinal substance allergy status; Z90.49 Acquired absence of other specified parts of digestive tract; Z79.01 Long term (current) use of anticoagulants; Z86.718 Personal history of other venous thrombosis and embolism; Z98.890 Other specified postprocedural states; Z23 Encounter for immunization
CPT/HCPCS: 27265; 72192; 73501; 80048; 80053; 82607; 82728; 82746; 82962; 83540; 83550; 84466; 85014; 85018; 85025; 90662; 96374; 96375; 96376; 97116; 97163; 97167; 97530; 97535; 99152; 99285; G0008; G0378; J2916